=== PATIENT | male | born 1960 | race Caucasian/White ===

== ENCOUNTER → 2020-06-07 | Day surgery (SDC) | payer BC ==
[~2020-06-07] MED LIST: Ketamine 200 MG/20 ML MDV ONE; Phenylephrine 1% 10 MG/ML SDV ONE; Propofol 200 MG/20 ML SDV ONE; fentaNYL 100 MCG/2 ML SDV ONE
[2020-06-07] MEDS: Lactated Ringers 1,000 ML IV SCH (12:01)
[2020-06-07 13:17] VITALS: BP 106/69; PULSE 66
--- NOTE | 2020-06-10 09:06 | OR ---
DATE OF OPERATION: 06/07/2020 PREOPERATIVE DIAGNOSIS: HISTORY OF POLYPS. POSTOPERATIVE DIAGNOSIS: HISTORY OF POLYPS. SURGEON: Miky Hinton MD PROCEDURE: DIAGNOSTIC COLONOSCOPY WITH SNARE POLYPECTOMY X1. ANESTHESIA: MAC. COMPLICATIONS: None. SPECIMEN: Small villous lesion of transverse colon, approximately 3 to 4 mm. FINDINGS: 1. Full-length colonoscopy. 2. Small villous adenoma of mid transverse colon. 3. Mild sigmoid diverticulosis. RECOMMENDATIONS: Followup colonoscopy in 5 years. INDICATIONS: The patient is a 59-year-old male who had 2 larger villous lesions removed in the past 3 or 4 years. He is slightly overdue for a followup endoscopy. DESCRIPTION OF PROCEDURE: The patient was prepped and draped, placed in the left lateral decubitus position. A lubricated Olympus colonoscope was inserted and easily advanced to the cecum. Direct visualization of the ileocecal valve and appendiceal orifice was accomplished. The bowel prep was adequate. Upon withdrawal of the scope, the cecum, ascending colon were benign where the patient's prior removal was. There was no polyp recurrence. In the mid transverse colon, he had a small 3 to 4 mm villous lesion that was removed with a snare and suctioned into polyp trap #1. The rest of the transverse and descending areas were benign. The patient does have scattered diverticula in the sigmoid colon, mild in severity. No inflammatory changes seen. The rectal vault was benign. Retroflexion of the scope in the rectum showed no anal lesions. Air was suctioned, scope removed without complication. CONSTANZA/VEL /[id number]
== END ==
LOC: CC.SDS 11:40
PROVIDERS: ATTEND Family Medicine
DX: Z12.11 Encounter for screening for malignant neoplasm of colon (principal); D12.3 Benign neoplasm of transverse colon; K57.30 Diverticulosis of large intestine without perforation or abscess without bleeding; I25.2 Old myocardial infarction; I25.10 Atherosclerotic heart disease of native coronary artery without angina pectoris; E11.9 Type 2 diabetes mellitus without complications; E78.5 Hyperlipidemia, unspecified; E66.9 Obesity, unspecified; Z95.1 Presence of aortocoronary bypass graft; Z98.890 Other specified postprocedural states; Z87.891 Personal history of nicotine dependence; Z79.899 Other long term (current) drug therapy; Z88.8 Allergy status to other drugs, medicaments and biological substances; Z68.32 Body mass index [BMI] 32.0-32.9, adult; Z01.812 Encounter for preprocedural laboratory examination; Z20.828 Contact with and (suspected) exposure to other viral communicable diseases
CPT/HCPCS: 82962; J2370; J2704; J3010; J7120